=== PATIENT | male | born 1950 | race Caucasian/White ===

== ENCOUNTER 2017-01-24 09:04 | Inpatient (IN) | payer MEDICARE ==
--- NOTE | ~2017-01-24 | DS ---
Unit #: [id number] #: [id number] Patient: ROSALIE ROLAND [id number] [address] [address] [id number] I MR#: [id number] NAME: ROSALIE ROLAND ROOM: 229 Age: 66 Sex: M Admission Date: 01/24/2017 : 1950 Discharge Date: 01/29/2017 Attending Physician: Miroslava Castillo M.D. Primary Care Physician: Shyam Cedeño M.D. DISCHARGE SUMMARY PRINCIPAL DIAGNOSES 1. Acute delirium tremens without seizure. 2. Severe physical deconditioning, now improving. 3. Vitamin B12 deficiency with vitamin B12 level of 187. 4. Thrombocytopenia, secondary to chronic alcohol abuse. 5. Hypertension. 6. Tobaccoism. 7. History of recent fall. 8. History of apical thrombus, now off anticoagulation per cardiology. COMMUNITY RELATIONS DIRECTOR None. PROCEDURES 1. CT of the head without contrast on January 24, 2017, with no acute abnormality, atrophy with disproportionate volume loss in the posterior fossa consistent with history of alcohol abuse, probable lacunar infarct in the right anterior thalamus measuring 7 mm in dimension. 2. Chest x-ray on January 24, 2017 with thickening in the peribronchovascular soft tissues consistent with bronchitis. CLINICAL HISTORY AND HOSPITAL COURSE Mr. Roland is a nice 66-year-old male, who is brought in by [facility] due to acute alcohol withdrawal. Patient presented to [facility] for alcohol treatment but appeared to be in significant DTs and thus was transferred to our facility. Upon presentation, he was tachycardic, hypertension, and was subsequently admitted. Patient was placed on scheduled Librium in addition to Ativan per [facility]WA protocol. He did not have any seizure activity during hospitalization. He has not required any Ativan for the last several days and Librium is currently being tapered. His tachycardia, hypertension, and tremor have all resolved. Will complete a short course of tapering Librium as outpatient. Patient did have significant deconditioning and remained in the hospital for several days for physical rehab. However, today per PT, patient is ambulating much better. He has been evaluated for subacute rehab but if not accepted, I think will be stable for discharge home. Patient was found to have vitamin B deficiency which we will replace in addition to having some thrombocytopenia and this can be followed up as an outpatient. It should improve off alcohol. Unit #: [id number] #: [id number] Patient: ROSALIE ROLAND DISCHARGE CONDITION Stable. DISCHARGE STATUS Discharge to rehab if bed available, otherwise home with PT. DISCHARGE MEDICATIONS 1. Paxil 40 mg daily. 2. Librium 25 mg p.o. b.i.d. for two days, then 25 mg p.o. daily for two days, then discontinue. 3. Coreg 25 mg b.i.d. 4. Losartan 25 mg daily. 5. Protonix 40 mg daily. 6. Daily multivitamin. 7. Vitamin B12 at 1000 mcg p.o. daily. DISCHARGE INSTRUCTIONS 1. The patient was instructed to follow a heart healthy diet. 2. He can increase activity as tolerated. 3. To refrain from any further alcohol use. FOLLOWUP The patient will follow up with his primary care provider, Dr. Cedeño, upon discharge from inpatient alcohol rehab which is ultimately the plan per the patient and his . Time spent on discharge today, 33 minutes. Dictated by... Miroslava Castillo M.D. GIUSEPPE/leesa TD: 01/30/2017 16:15 JOB #: [id number] DISCHARGE SUMMARY Page 1 of 1 X Miroslava Castillo MD X DISCHARGE SUMMARY
--- NOTE | ~2017-01-24 | CR72 ---
[facility] A Service of [facility] RADIOLOGY TEXT RESULTS PATIENT: ROSALIE ROLAND LOCATION: [facility] : [birth year] UNIT #: [id number] AGE: [address]: Isabel Daly MD SEX: M ORDER DR: [id number] [facility] [address] [place], [place] [address] [id number] I MR#: [id number] Acc #: [id number] NAME: ROSALIE ROLAND : 1950 SEX: M STUDY DATE/TIME: 01/24/2017 12:08 UNIT: [address] ROOM: [facility] STUDY DESCRIPTION: CR Chest Single View Portable Attending Physician: Isabel Daly M.D. Ordering Physician: Marine Charles M.D. Primary Care Physician: Shyam Cedeño M.D. MEDICAL IMAGING REPORT This report is preliminary unless electronic signature is present EXAM Chest x-ray portable HISTORY Cough. Patient shaking spike in blood pressure, smoker for 30 years. Symptoms started today. Detox. COMMENT Frontal view of the chest reviewed. 2 films submitted for review timed 12:08. No comparison. The cardiac silhouette size is top normal. There is no acute congestive failure. Mild thickening of the central peribronchovascular soft tissues to the lower lungs, asymmetric to the right side could reflect some underlying asthma or bronchitis. No definite acute infiltrate. No pneumothorax. No pleural effusion. IMPRESSION 1. Mild thickening of the peribronchovascular soft tissues to the right lung base probably a manifestation of some underlying asthma or bronchitis. Otherwise no active disease is seen in the chest. Dictated by... Angelica Flores M.D. THIS IS AN ELECTRONICALLY VERIFIED REPORT Angelica Flores M.D. at 01/25/2017 7:26 AM YVONNE/brayden TD: 01/24/2017 22:57 JOB #: [id number] MEDICAL IMAGING REPORT [facility] A Service of [facility] RADIOLOGY TEXT RESULTS PATIENT: ROSALIE ROLAND LOCATION: [facility] 307-01 : [birth year] UNIT #: [id number] AGE: [address]: Isabel Daly MD SEX: M ORDER DR: Page 1 of 1 COPY
--- NOTE | ~2017-01-24 | CT71 ---
[facility] A Service of [facility] & [facility] RADIOLOGY TEXT RESULTS PATIENT: ROSALIE ROLAND LOCATION: [facility] 307- : [birth year] UNIT #: [id number] AGE: [address]: Isabel Daly MD SEX: M ORDER DR: [id number] [facility] [address] [place], [place] [address] [id number] I MR#: [id number] Acc #: [id number] NAME: ROSALIE ROLAND : 1950 SEX: M STUDY DATE/TIME: 01/24/2017 14:41 UNIT: A PCU ROOM: [facility] STUDY DESCRIPTION: CT Head Wo Contrast Attending Physician: Isabel Daly M.D. Ordering Physician: Isabel Daly M.D. Primary Care Physician: Shyam Cedeño M.D. MEDICAL IMAGING REPORT This report is preliminary unless electronic signature is present EXAM Head CT without. HISTORY Alcohol withdrawal and tremors. Patient is tachycardiac. He had a syncopal episode, fell and hit the right side of his head on 01/22/2017. Complains of right-sided head pain since 01/22/2017. TECHNIQUE Routine noncontrast head CT is reviewed. This CT exam was performed with one or more of the following radiation dose reduction techniques: automatic exposure control, adjustment of mA and/or kV according to patient size, and iterative reconstruction. COMPARISON There is no prior. FINDINGS The visualized mastoid air cells are clear. There is mild mucosal disease in the visualized paranasal sinuses but there is no air-fluid level appreciated. No displaced calvarial fracture. There is atrophy with disproportionate volume loss in the posterior fossa consistent with provided history of alcohol abuse. There is a focus of low-attenuation seen at the anterior right thalamus into the posterior limb of the right internal capsule. This is about 7 mm in largest dimension. It is nonspecific but most consistent with a small age indeterminate lacunar type insult. There is no appreciable mass effect. Otherwise, the vizcarra-white junction is fairly well maintained. The basilar cisterns are patent. Patient has had cataract surgery bilaterally. There is no intracranial mass effect. STS. [facility] A Service of [facility] & [facility] RADIOLOGY TEXT RESULTS PATIENT: ROSALIE ROLAND LOCATION: [facility] 307-01 : [birth year] UNIT #: [id number] AGE: [address]: Isabel Daly MD SEX: M ORDER DR: IMPRESSION No acute intracranial injury suspected. There is atrophy with disproportionate volume loss in the posterior fossa consistent with alcohol abuse history. There is a small age indeterminate probable lacuna at the right anterior thalamus up to about 7 mm dimension. Please correlate for risk factors for small vessel disease. Dictated by... Angelica Flores M.D. THIS IS AN ELECTRONICALLY VERIFIED REPORT Angelica Flores M.D. at 01/25/2017 7:30 AM YVONNE/nancy TD: 01/24/2017 23:50 JOB #: [id number] MEDICAL IMAGING REPORT Page 1 of 1 COPY
--- NOTE | ~2017-01-24 | EKG ---
PATIENT: ROSALIE ROLAND UNIT #: [id number] Ventricular Rate: 87 BPM Atrial Rate: 87 BPM P-R Interval: 162 ms QRS Duration: 96 ms Q-T Interval: 376 ms QTC Calculation(Bezet): 452 ms P Comins: 65 degrees Calculated R Comins: -32 degrees Calculated T Comins: 46 degrees Diagnosis Line: Normal sinus rhythm Diagnosis Line: Left axis deviation Diagnosis Line: Abnormal ECG Diagnosis Line: No previous ECGs available Diagnosis Line: Confirmed by SEAN MAR MD ([id number]) on Diagnosis Line: 01/25/2017 10:04:49 AM INTERPRETING MD: ADRI
--- NOTE | ~2017-01-24 | HP ---
Unit #: [id number] #: [id number] Patient: ROSALIE ROLAND [id number] [facility] [address]. [place], [place] [address] [id number] I MR#: [id number] NAME: ROSALIE ROLAND ROOM: 307 Age: 66 Sex: M Admission Date: 01/24/2017 : 1950 Attending Physician: Isabel Daly M.D. Primary Care Physician: Shyam Cedeño M.D. HISTORY AND PHYSICAL CHIEF COMPLAINT Sent by [facility] for detox. HISTORY OF PRESENT ILLNESS The patient is a 66-year-old male with a past medical history of alcohol abuse, atrial thrombus, chronic anticoagulation, hypertension, myocardial infarction, who presented to the emergency room for evaluation of the above. The patient went to [facility] for alcohol treatment this morning. He was sent here for medical clearance. He states that he has been in his usual state of health. He denies any fever. No cough or cold symptoms. He has had frequent falls with the last fall being two days ago. He apparently hit his face. He denies any loss of consciousness although it was unwitnessed. He has had frequent syncopal episodes within the past couple of weeks as well. He states that it typically occurs when he stands up. He denies any chest pain. No difficulty breathing. He has had decreased appetite. He reports one bout of nonbloody emesis within the past 24 hours. He denies any diarrhea. No urinary symptoms. He typically drinks a pint of alcohol daily. His last drink was yesterday. In the emergency department, initial pulse and blood pressure were 97 and 188/118 respectively. He was given 1 L of normal saline as well as a p.o. Rally pack. He received a total of 6 mg of Ativan and 50 mg of Librium. He is being admitted to [facility] for evaluation and further treatment. PAST MEDICAL HISTORY 1. Admission to [facility] in May 2016. He underwent cardiac catheterization during that admission and was told that he had a thrombus in his heart. He has been on warfarin. He is followed by Dr. Magana. 2. Hypertension. 3. History of myocardial infarction. 4. What sounds like atrial thrombus, on chronic anticoagulation with warfarin. PAST SURGICAL HISTORY Cardiac catheterization, no records. SOCIAL HISTORY The patient lives with his . He smokes a pack and a half of cigarettes daily. He drinks a pint of alcohol daily. He is a retired application chemist. He has been in rehab three other times. Unit #: [id number] #: [id number] Patient: ROSALIE ROLAND FAMILY HISTORY Notable for his mother having congestive heart failure. His dad had a cerebrovascular accident. ALLERGIES No known allergies. HOME MEDICATIONS 1. Losartan. 2. Carvedilol. 3. Paxil. Home medications will need to be reviewed and verified. The patient was also on warfarin until within the past couple of days when he was seen at [facility] emergency department regarding syncope. DIAGNOSTIC STUDIES IMAGING: Chest x-ray shows nothing active. LABORATORY: Complete blood count notable for hemoglobin and hematocrit of 11.7 and 35.5 respectively. MCV is 103.4, platelets are 139. Comprehensive metabolic panel notable for chloride of 98, AST is 65. Alcohol level is 11. Urinalysis notable for trace leukocyte esterase, trace protein. Urine tox screen is negative. PHYSICAL EXAMINATION VITAL SIGNS: Temperature is 98.5, pulse 97, respirations 18, blood pressure 188/118. Oxygen saturation 100% on room air. GENERAL: The patient is a male who is sleeping but wakes to voice. HEENT: The patient does have an abrasion on the bridge of his nose. Mucous membranes are dry. NECK: Supple. Trachea is midline. CARDIOVASCULAR: Regular rate and rhythm. LUNGS: Clear to auscultation bilaterally with no increased work of breathing. ABDOMEN: Soft, nontender with bowel sounds present in all four quadrants. EXTREMITIES: Nontender with no pedal edema. The patient does have scattered abrasions and contusions. NEUROLOGIC: The patient is oriented x3. He is tremulous. PSYCH: Mood and affect are normal. The patient is cooperative. SKIN: Demonstrates the previously described abnormalities. ASSESSMENT The patient is a 66-year-old male with: 1. Alcohol withdrawal: The patient received a total of 6 mg of Ativan in the emergency department as well as 25 mg of Librium. He also received a p.o. Rally pack. 2. Recent fall with abrasion to the bridge of the nose. 3. Syncope. 4. Macrocytic anemia: The patient's hemoglobin was 11.8 on March 09, 2016. It is 11.7 today. Unit #: [id number] #: [id number] Patient: ROSALIE ROLAND 5. Atrial thrombus, follows Dr. Magana. 6. Chronic anticoagulation with Coumadin: This was stopped within the past couple of days after an ER visit to [facility] following a fall. 7. Hypertension. 8. History of myocardial infarction: The patient denies any cardiac stents. 9. Alcohol abuse with last drink being yesterday. 10. Tobacco abuse. PLAN 1. Admit to intermediate level. 2. Healthy heart diet if passes bedside swallow. 3. Alcohol withdrawal protocol. 4. Librium 25 mg p.o. q.[address] of the head. 6. Get records from [facility] including cardiac cath and echo. 7. EKG and cardiac enzymes. 8. Bedrest. 9. Fall precautions. 10. Orthostatics q. shift. 11. Neuro checks. 12. Check magnesium and INR. 13. safety manager/social work consult regarding rehab. 14. Repeat labs in the morning. 15. SCDs for DVT prophylaxis. 16. Additional workup and consultants based on above. Dictated by Isabel Daly M.D. LETICIA/thomas TD: 01/24/2017 16:18 JOB #: [id number] HISTORY AND PHYSICAL Page 1 of 1 X Isabel Daly MD X HISTORY AND PHYSICAL
[2017-01-24 09:56] LABS: BASOPHIL# 0.1 X10e3 (0-0.3); BASOPHIL% 2.1 % (0-2.5); EOSINOPHIL% 0.9 % (0.0-7.0); HEMATOCRIT 35.5 % (38.0-50.0); HEMOGLOBIN 11.7 gm/dL (13.0-16.0); LYMPHOCYTE# 1.3 X10e3 (1.0-3.5); LYMPHOCYTE% 23.9 % (17.0-45.0); MEAN CELL VOLUME 103.4 FL (83-96); MEAN CORPUSCULAR HGB CONC 32.9 g/dL (30-36); MEAN PLATELET VOLUME 7.7 FL (6.5-11.5); MONOCYTE# 0.6 X10e3 (0-1.0); MONOCYTE% 11.9 % (3.0-12.0); NEUTROPHIL# 3.3 X10e3 (1.5-7.1); NEUTROPHIL% 61.2 % (40-75); PLATELET COUNT 139 X10e3 (140-420); RED BLOOD COUNT 3.44 X10e (3.90-5.60); RED CELL DISTRIBUTION WIDTH 15.4 % (11.0-15.5); WHITE BLOOD COUNT 5.4 X10e3 (4.0-10.5)
[2017-01-24 10:05] LABS: DIFF IND NO
[2017-01-24 10:48] LABS: ALBUMIN SERUM 3.7 g/dL (3.5-5.0); BILIRUBIN, DIRECT 0.1 mg/dL (0.0-0.2); BILIRUBIN,INDIRECT 0.9 mg/dL (0.0-0.9); BUN/CREATININE RATIO 12.22; CALCIUM SERUM 9.2 mg/dL (8.4-10.2); CREATININE SERUM 0.9 mg/dL (0.6-1.4); GLOM FILT RATE Estimated 89.3 mL/min (>60); POTASSIUM 4.1 mmol/L (3.5-5.1); PROTEIN TOTAL SERUM 6.7 g/dL (6.0-8.3)
[2017-01-24 11:30] LABS: URINE SOURCE CLEAN CATCH
[2017-01-24 11:46] LABS: URINE APPEARANCE CLEAR; URINE BILIRUBIN NEG (NEG); URINE BLOOD NEG (NEG); URINE COLOR YELLOW; URINE GLUCOSE NEG (NEG); URINE KETONE NEG (NEG); URINE LEUKOCYTE ESTERASE TRACE (NEG); URINE NITRATE NEG (NEG); URINE PH 8.5 (5-8); URINE PROTEIN TRACE (NEG); URINE SPECIFIC GRAVITY 1.018 (1.003-1.035)
[2017-01-24 11:50] LABS: U HYALINE CASTS AUWI 0-2 /[LPF]; URBCS1 AUWI 0-2 /[HPF] (0-2); URINE BACTERIA AUWI NEG (NEGATIVE); URINE SQUAMOUS EPITHELIAL CELL NONE SEEN /[HPF]; UWBCS1 AUWI 0-2 (0-5)
[2017-01-24 11:55] LABS: CULTURE INDICATED? NO
[2017-01-24 11:59] LABS: AMPHETAMINE NEG (NEG); BARBITURATES NEG (NEG); BENZODIAZEPINES NEG (NEG); COCAINE NEG (NEG); MARIJUANA NEG (NEG); OPIATES NEG (NEG); TRICYCLIC ANTIDEPRESSANTS NEG (NEG); U METHADONE NEG (NEG)
[2017-01-24] MEDS ORDERED: CARVEDILOL25 M1 PO (14:08)
[2017-01-24] MEDS ORDERED: LOSARTAN POTASS25 MG PO (14:09)
[2017-01-24] MEDS ORDERED: PAROXETINE HCL40 M1 PO (14:09)
[2017-01-24] MEDS ORDERED: PROTONIX PO (14:10)
[2017-01-24 15:11] LABS: %MB 0.4 % (0.0-4.0); MB 3.1 ng/ml
[2017-01-24 15:14] LABS: INR 0.9
[2017-01-24 16:39] LABS: INR 0.9; PROTHROMBIN TIME (PATIENT) 10.2 SECONDS (10.0-11.7)
[2017-01-24 17:02] LABS: MAGNESIUM 1.5 mg/dL (1.6-3.0)
[2017-01-24 17:23] LABS: %MB 0.3 % (0.0-4.0); MB 2.3 ng/ml
[2017-01-24 19:46] LABS: %MB 0.3 % (0.0-4.0); MB 2.2 ng/ml
[2017-01-25 02:44] LABS: HEMOGLOBIN 11.3 gm/dL (13.0-16.0); MEAN CELL VOLUME 102.5 FL (83-96); MEAN CORPUSCULAR HGB CONC 33.2 g/dL (30-36); MEAN PLATELET VOLUME 7.8 FL (6.5-11.5); RED BLOOD COUNT 3.32 X10e (3.90-5.60); RED CELL DISTRIBUTION WIDTH 15.3 % (11.0-15.5)
[2017-01-25 03:52] LABS: CALCIUM SERUM 8.5 mg/dL (8.4-10.2); CREATININE SERUM 0.9 mg/dL (0.6-1.4); GLOM FILT RATE Estimated 89.3 mL/min (>60); MAGNESIUM 2.2 mg/dL (1.6-3.0); POTASSIUM 3.7 mmol/L (3.5-5.1)
[2017-01-25 04:04] LABS: %MB 0.5 % (0.0-4.0); MB 2.2 ng/ml
[2017-01-26 06:10] LABS: HEMATOCRIT 29.5 % (38.0-50.0); HEMOGLOBIN 9.9 gm/dL (13.0-16.0); MEAN CELL VOLUME 102.4 FL (83-96); MEAN CORPUSCULAR HEMOGLOBIN 34.5 PG (28-34); MEAN CORPUSCULAR HGB CONC 33.7 g/dL (30-36); MEAN PLATELET VOLUME 9.2 FL (6.5-11.5); RED BLOOD COUNT 2.88 X10e (3.90-5.60); RED CELL DISTRIBUTION WIDTH 14.9 % (11.0-15.5); WHITE BLOOD COUNT 4.6 X10e3 (4.0-10.5)
[2017-01-26 06:21] LABS: BUN/CREATININE RATIO 13.33; CALCIUM SERUM 7.8 mg/dL (8.4-10.2); CREATININE SERUM 0.9 mg/dL (0.6-1.4); GLOM FILT RATE Estimated 89.3 mL/min (>60); MAGNESIUM 1.7 mg/dL (1.6-3.0); PHOSPHOROUS 2.6 mg/dL (2.5-4.6); POTASSIUM 3.4 mmol/L (3.5-5.1)
[2017-01-27 05:21] LABS: HEMATOCRIT 30.7 % (38.0-50.0); HEMOGLOBIN 10.3 gm/dL (13.0-16.0); MEAN CELL VOLUME 102.7 FL (83-96); MEAN CORPUSCULAR HEMOGLOBIN 34.4 PG (28-34); MEAN CORPUSCULAR HGB CONC 33.5 g/dL (30-36); MEAN PLATELET VOLUME 8.7 FL (6.5-11.5); RED BLOOD COUNT 2.99 X10e (3.90-5.60); RED CELL DISTRIBUTION WIDTH 14.8 % (11.0-15.5); WHITE BLOOD COUNT 4.5 X10e3 (4.0-10.5)
[2017-01-27 06:06] LABS: BUN/CREATININE RATIO 12.85; CALCIUM SERUM 8.6 mg/dL (8.4-10.2); CREATININE SERUM 0.7 mg/dL (0.6-1.4); GLOM FILT RATE Estimated 99.1 mL/min (>60); MAGNESIUM 1.6 mg/dL (1.6-3.0); POTASSIUM 3.8 mmol/L (3.5-5.1)
[2017-01-29] MEDS ORDERED: LIBRIUM25 MG PO (14:21)
[2017-01-29] MEDS ORDERED: CYANOCOBALAM1000 MCG PO (14:22)
== END 2017-01-29 15:21 | disposition home or self-care (01) | DRG 897 ==
LOC: CED 09:04 → C3A PCU 12:19 → CEDOF 12:19 → CED 12:40 → CEDOF 12:40 → C3A PCU 15:19 → CEDOF 15:19 → C3A PCU 01-25 07:40 → C2A 01-27 15:10
PROVIDERS: Family Medicine; Internal Medicine; Student in an Organized Health Care Education/Training Program
DX: F10.231 Alcohol dependence with withdrawal delirium (principal); D69.59 Other secondary thrombocytopenia; Y90.0 Blood alcohol level of less than 20 mg/100 ml; R55 Syncope and collapse; S00.31XA Abrasion of nose, initial encounter; X58.XXXA Exposure to other specified factors, initial encounter; D53.9 Nutritional anemia, unspecified; I25.2 Old myocardial infarction; Z79.01 Long term (current) use of anticoagulants; I10 Essential (primary) hypertension; F17.200 Nicotine dependence, unspecified, uncomplicated; E53.8 Deficiency of other specified B group vitamins; R00.0 Tachycardia, unspecified; Z82.49 Family history of ischemic heart disease and other diseases of the circulatory system; Z82.3 Family history of stroke
CPT/HCPCS: 36415; 70450; 71010; 80048; 80076; 80307; 81003; 82550; 82553; 82607; 82947; 83735; 84100; 84484; 85025; 85027; 85610; 93005; 96361; 96374; 96375; 97110; 97116; 97162; 97166; 97530; 97535; 99285; C9113; G0480; G8978-GP; G8979-GP; G8987-GO; G8988-GO; J0360; J2060; J2405; J3411; J3420; J3475; J7042